=== PATIENT | male | born 1955 | race Caucasian/White ===

== ENCOUNTER 2019-07-02 17:18 | Inpatient (IN) ==
[2019-07-02] MEDS ORDERED: Nitroglycerin 0.4 MG TAB.SUBL SL ONE (19:50)
[2019-07-02] MEDS ORDERED: Furosemide 40 MG/4 ML VIAL IVP STA (20:18)
[2019-07-02] MEDS ORDERED: Amiodarone Premix 150 MG/100 ML BAG IVPB ONE (21:00)
[2019-07-02 21:01] LABS: Hematocrit 39.1 % (37.5-50.1); Mean Corpuscular HGB Conc 33.2 g/dL (31.6-35.5); Mean Corpuscular Hemoglobin 26.9 pg (28.0-33.3); Mean Corpuscular Volume 80.8 fL (83.0-100.0); Mean Platelet Volume 10.6 fL (9.4-12.4); Platelet Count 310 K/mcL (140-400); Red Blood Count 4.84 M/mcL (4.19-5.50); Red Cell Distribution Width 15.1 % (11.5-14.5); White Blood Count 14.4 K/mcL (4.3-11.1)
[2019-07-02 21:05] LABS: INR 1.3; Prothrombin Time 15.2 Seconds (9.4-12.1)
[2019-07-02] MEDS ORDERED: Amiodarone Premix 360 MG/200 ML BAG IVC ONE (21:08)
[2019-07-02 21:22] LABS: BUN/Creatinine Ratio 20 (6-26); Blood Urea Nitrogen 19 mg/dL (8-23); Calcium 9.1 mg/dL (8.6-10.3); Carbon Dioxide 21 mEq/L (23-29); Chloride 103 mEq/L (98-107); Glucose 149 mg/dL (70-105); Osmolality,Calculated 287 (280-300); Potassium 4.2 mEq/L (3.5-5.1); Sodium 136 mEq/L (136-145); eGFR For African Americans > 60 (> 60); eGFR For Non-African Americans > 60 (> 60)
[2019-07-02] MEDS ORDERED: Acetaminophen 325 MG TABLET PO PRN (21:26)
[2019-07-02] MEDS ORDERED: Naloxone 0.4 MG/ML INJ IVP PRN (21:26)
[2019-07-02] MEDS ORDERED: D5% in Water 1,000 ML IVC PRN (21:30)
[2019-07-02] MEDS ORDERED: Dextrose Gel 15 GM/37.5 ML TUBE PO PRN ×2 (21:30)
[2019-07-02] MEDS ORDERED: *HR* Dextrose 50 % in Water (Syg) 50 ML SYRINGE IVP PRN (21:30)
[2019-07-02 21:37] LABS: Thyroid Stimulating Hormone 3.399 mcIU/mL (0.340-5.600)
[2019-07-02] MEDS ORDERED: *HR* Heparin 5,000 UNIT/ML VIAL IVP PRN (21:38)
[2019-07-02] MEDS ORDERED: *HR* Heparin 5,000 UNIT/ML VIAL IVP ONE (21:38)
[2019-07-02 21:39] LABS: Triiodothyronine (T3) Free 2.66 pg/mL (2.50-3.90)
[2019-07-02] MEDS ORDERED: Heparin 25,000 UNIT/250 ML D5W 25,000 UNIT/250 ML IV.SOLN IVC SCH (21:45)
[2019-07-02] MEDS: Heparin 25,000 UNIT/250 ML D5W 25,000 UNIT/250 ML IV.SOLN IVC SCH (22:22)
[2019-07-02] MEDS ORDERED: *HR* Metoprolol 5 MG/5 ML VIAL IVP PRN (22:47)
[2019-07-03] MEDS ORDERED: Ondansetron 4 MG/2 ML VIAL IVP ONE (00:51)
[2019-07-03] MEDS ORDERED: Ondansetron 4 MG/2 ML VIAL ONE (00:54)
[2019-07-03 01:06] LABS: Hematocrit 40.6 % (37.5-50.1); Hemoglobin 12.9 g/dL (12.9-16.9); Mean Corpuscular HGB Conc 31.8 g/dL (31.6-35.5); Mean Corpuscular Hemoglobin 26.6 pg (28.0-33.3); Mean Corpuscular Volume 83.7 fL (83.0-100.0); Mean Platelet Volume 10.7 fL (9.4-12.4); Platelet Count 331 K/mcL (140-400); Red Blood Count 4.85 M/mcL (4.19-5.50); Red Cell Distribution Width 15.2 % (11.5-14.5); White Blood Count 15.6 K/mcL (4.3-11.1)
[2019-07-03 01:23] LABS: BUN/Creatinine Ratio 18 (6-26); Blood Urea Nitrogen 19 mg/dL (8-23); Calcium 9.1 mg/dL (8.6-10.3); Carbon Dioxide 22 mEq/L (23-29); Chloride 102 mEq/L (98-107); Glucose 207 mg/dL (70-105); Magnesium 1.7 mg/dL (1.6-2.6); Osmolality,Calculated 284 (280-300); Sodium 133 mEq/L (136-145); eGFR For African Americans > 60 (> 60); eGFR For Non-African Americans > 60 (> 60)
[2019-07-03] MEDS ORDERED: Naloxone 0.4 MG/ML INJ IVP PRN (01:44)
[2019-07-03] MEDS ORDERED: Ondansetron 4 MG/2 ML VIAL IVP PRN (01:44)
[2019-07-03] MEDS: Insulin LISPRO 300 UNITS/3 ML VIAL SQ SCH ×5 (02:31→21:37)
[2019-07-03] MEDS: Amiodarone Premix 360 MG/200 ML BAG IVC SCH ×2 (03:40→16:01)
[2019-07-03 05:43] LABS: Alanine Aminotransferase 25 Units/L (7-52); Albumin 3.6 g/dL (3.5-5.7); Albumin/Globulin Ratio 1.2 (1.1-2.2); Alkaline Phosphatase 69 Units/L (34-104); Aspartate Amino Transferase 19 Units/L (13-39); BUN/Creatinine Ratio 20 (6-26); Bilirubin,Total 0.9 mg/dL (0.3-1.0); Blood Urea Nitrogen 21 mg/dL (8-23); Carbon Dioxide 23 mEq/L (23-29); Chloride 102 mEq/L (98-107); Chol/HDL Ratio 5.2 (0-4.9); Cholesterol 166 mg/dL (< 200); Glucose 240 mg/dL (70-105); HDL Cholesterol 32 mg/dL (40-59); LDL Cholesterol,Calculated 89 mg/dL (0-99); Magnesium 1.7 mg/dL (1.6-2.6); Osmolality,Calculated 287 (280-300); Phosphorous 4.4 mg/dL (2.7-4.5); Sodium 133 mEq/L (136-145); Total Protein 6.6 g/dL (6.4-8.9); Triglycerides 225 mg/dL (< 150); eGFR For African Americans > 60 (> 60); eGFR For Non-African Americans > 60 (> 60)
[2019-07-03] MEDS: *HR* Heparin 5,000 UNIT/ML VIAL IVP PRN ×3 (05:51→21:28)
[2019-07-03] MEDS: Doxycycline 100 MG CAPSULE PO SCH ×2 (08:13→21:28)
[2019-07-03] MEDS: Aspirin Enteric Coated 81 MG Tablet PO SCH (08:13)
[2019-07-03] MEDS ORDERED: Furosemide 40 MG/4 ML VIAL IVP ONE (08:51)
[2019-07-03 11:20] LABS: Bilirubin,Urine Negative (Negative); Blood,Urine Trace (Negative); Color,Urine Yellow (Yellow); Glucose,Urine (UA) 100 mg/dL (Normal); Ketones,Urine Negative (Negative); Leukocyte Esterase,Urine Negative (Negative); Nitrite,Urine Negative (Negative); Protein,Urine Negative (Neg-Trace); Specific Gravity,Urine 1.019 (1.010-1.025); Urobilinogen,Urine Normal (Normal)
[2019-07-03 11:22] LABS: Bacteria,Urine None Seen per hpf (None-Few); Clarity,Urine Clear (Clear); Hyaline Casts,Urine None Seen per lpf (None-Few); Squamous Epithelial Cell,Urine Moderate per lpf (None-Few); WBC,Urine 0-3 per hpf (0-3)
[2019-07-03] MEDS: Heparin 25,000 UNIT/250 ML D5W 25,000 UNIT/250 ML IV.SOLN IVC SCH (15:29)
[2019-07-04] MEDS: Amiodarone Premix 360 MG/200 ML BAG IVC SCH ×2 (03:08→16:03)
[2019-07-04] MEDS: Heparin 25,000 UNIT/250 ML D5W 25,000 UNIT/250 ML IV.SOLN IVC SCH (04:28)
[2019-07-04 04:32] LABS: Basophils # 0.1 K/mcL (0.0-0.2); Basophils % 0.5 %; Eosinophils # 0.2 K/mcL (0.0-0.6); Eosinophils % 1.6 %; Hematocrit 37.2 % (37.5-50.1); Hemoglobin 11.5 g/dL (12.9-16.9); Immature Granulocytes % 0.6 % (0-4); Lymphocytes # 2.3 K/mcL (0.6-4.6); Lymphocytes % 20.2 %; Mean Corpuscular HGB Conc 30.9 g/dL (31.6-35.5); Mean Corpuscular Hemoglobin 26.5 pg (28.0-33.3); Mean Corpuscular Volume 85.7 fL (83.0-100.0); Mean Platelet Volume 10.6 fL (9.4-12.4); Monocytes # 1.5 K/mcL (0.0-1.3); Monocytes % 13.4 %; Neutrophils # 7.1 K/mcL (1.6-8.9); Platelet Count 246 K/mcL (140-400); Red Blood Count 4.34 M/mcL (4.19-5.50); Red Cell Distribution Width 15.6 % (11.5-14.5); Segmented Neutrophils % 63.7 %; White Blood Count 11.1 K/mcL (4.3-11.1)
[2019-07-04 04:55] LABS: BUN/Creatinine Ratio 21 (6-26); Blood Urea Nitrogen 24 mg/dL (8-23); Calcium 8.6 mg/dL (8.6-10.3); Carbon Dioxide 25 mEq/L (23-29); Chloride 96 mEq/L (98-107); Glucose 361 mg/dL (70-105); Osmolality,Calculated 293 (280-300); Potassium 4.1 mEq/L (3.5-5.1); Sodium 132 mEq/L (136-145); eGFR For African Americans > 60 (> 60); eGFR For Non-African Americans > 60 (> 60)
[2019-07-04] MEDS: *HR* Heparin 5,000 UNIT/ML VIAL IVP PRN (05:52)
[2019-07-04] MEDS: Aspirin Enteric Coated 81 MG Tablet PO SCH (07:50)
[2019-07-04] MEDS: Doxycycline 100 MG CAPSULE PO SCH ×2 (07:50→19:58)
[2019-07-04] MEDS: Insulin LISPRO 300 UNITS/3 ML VIAL SQ SCH ×4 (08:00→21:38)
[2019-07-04] MEDS ORDERED: Furosemide 40 MG/4 ML VIAL IVP SCH (09:00)
[2019-07-04] MEDS: Furosemide 40 MG/4 ML VIAL IVP SCH ×2 (09:47→19:58)
[2019-07-04] MEDS: carvediloL 6.25 MG TABLET PO SCH ×2 (09:51→15:59)
[2019-07-04] MEDS ORDERED: Insulin LISPRO 300 UNITS/3 ML VIAL SQ SCH ×3 (13:30→17:00)
[2019-07-04] MEDS: Apixaban 5 MG TABLET PO SCH ×2 (13:48→19:58)
[2019-07-04] MEDS ORDERED: Insulin LISPRO 300 UNITS/3 ML VIAL SQ ONE (15:44)
[2019-07-04] MEDS ORDERED: Insulin DETEMIR 100 UNIT/ML X5UNITS SQ SCH ×3 (21:00)
[2019-07-05 04:47] LABS: Hematocrit 35.6 % (37.5-50.1); Hemoglobin 11.6 g/dL (12.9-16.9); Mean Corpuscular HGB Conc 32.6 g/dL (31.6-35.5); Mean Corpuscular Hemoglobin 26.7 pg (28.0-33.3); Mean Corpuscular Volume 81.8 fL (83.0-100.0); Mean Platelet Volume 10.6 fL (9.4-12.4); Platelet Count 283 K/mcL (140-400); Red Blood Count 4.35 M/mcL (4.19-5.50); Red Cell Distribution Width 15.5 % (11.5-14.5); White Blood Count 10.1 K/mcL (4.3-11.1)
[2019-07-05 05:05] LABS: Magnesium 1.9 mg/dL (1.6-2.6)
[2019-07-05 05:06] LABS: BUN/Creatinine Ratio 25 (6-26); Blood Urea Nitrogen 26 mg/dL (8-23); Calcium 8.8 mg/dL (8.6-10.3); Carbon Dioxide 29 mEq/L (23-29); Chloride 95 mEq/L (98-107); Glucose 308 mg/dL (70-105); Osmolality,Calculated 294 (280-300); Potassium 3.8 mEq/L (3.5-5.1); Sodium 134 mEq/L (136-145); eGFR For African Americans > 60 (> 60); eGFR For Non-African Americans > 60 (> 60)
[2019-07-05] MEDS: Spironolactone 25 MG TABLET PO SCH (08:29)
[2019-07-05] MEDS: Aspirin Enteric Coated 81 MG Tablet PO SCH (08:29)
[2019-07-05] MEDS: Furosemide 40 MG/4 ML VIAL IVP SCH ×2 (08:29→20:04)
[2019-07-05] MEDS: Insulin LISPRO 300 UNITS/3 ML VIAL SQ SCH ×7 (08:30→21:58)
[2019-07-05] MEDS: Insulin DETEMIR 100 UNIT/ML X5UNITS SQ SCH ×2 (08:30→20:04)
[2019-07-05] MEDS: Apixaban 5 MG TABLET PO SCH ×2 (08:30→20:03)
[2019-07-05] MEDS: Doxycycline 100 MG CAPSULE PO SCH ×2 (08:30→20:04)
[2019-07-05] MEDS ORDERED: carvediloL 6.25 MG TABLET PO ONE (09:30)
[2019-07-05] MEDS ORDERED: Furosemide 40 MG TABLET PO SCH (17:00)
[2019-07-05] MEDS: carvediloL 6.25 MG TABLET PO SCH (17:01)
[2019-07-06 04:51] LABS: Basophils % 0.4 %; Eosinophils # 0.5 K/mcL (0.0-0.6); Eosinophils % 4.9 %; Hematocrit 34.9 % (37.5-50.1); Hemoglobin 11.1 g/dL (12.9-16.9); Immature Granulocytes % 0.4 % (0-4); Lymphocytes # 1.9 K/mcL (0.6-4.6); Lymphocytes % 20.9 %; Mean Corpuscular HGB Conc 31.8 g/dL (31.6-35.5); Mean Corpuscular Hemoglobin 26.2 pg (28.0-33.3); Mean Corpuscular Volume 82.5 fL (83.0-100.0); Mean Platelet Volume 10.1 fL (9.4-12.4); Monocytes # 1.1 K/mcL (0.0-1.3); Monocytes % 11.6 %; Neutrophils # 5.7 K/mcL (1.6-8.9); Platelet Count 258 K/mcL (140-400); Red Blood Count 4.23 M/mcL (4.19-5.50); Red Cell Distribution Width 15.3 % (11.5-14.5); Segmented Neutrophils % 61.8 %; White Blood Count 9.2 K/mcL (4.3-11.1)
[2019-07-06 05:16] LABS: BUN/Creatinine Ratio 26 (6-26); Blood Urea Nitrogen 26 mg/dL (8-23); Calcium 8.7 mg/dL (8.6-10.3); Carbon Dioxide 29 mEq/L (23-29); Chloride 96 mEq/L (98-107); Glucose 274 mg/dL (70-105); Osmolality,Calculated 293 (280-300); Potassium 3.7 mEq/L (3.5-5.1); Sodium 134 mEq/L (136-145); eGFR For African Americans > 60 (> 60); eGFR For Non-African Americans > 60 (> 60)
[2019-07-06 05:17] LABS: Magnesium 1.6 mg/dL (1.6-2.6); Phosphorous 3.8 mg/dL (2.7-4.5)
[2019-07-06 07:59] VITALS: BP 148/79
[2019-07-06] MEDS: carvediloL 6.25 MG TABLET PO SCH (08:38)
[2019-07-06] MEDS: Furosemide 40 MG/4 ML VIAL IVP SCH (08:38)
[2019-07-06] MEDS: Doxycycline 100 MG CAPSULE PO SCH (08:38)
[2019-07-06] MEDS: Aspirin Enteric Coated 81 MG Tablet PO SCH (08:38)
[2019-07-06] MEDS: Spironolactone 25 MG TABLET PO SCH (08:39)
[2019-07-06] MEDS: Apixaban 5 MG TABLET PO SCH (08:39)
[2019-07-06] MEDS: Insulin LISPRO 300 UNITS/3 ML VIAL SQ SCH ×4 (08:39→12:03)
[2019-07-06] MEDS: Insulin DETEMIR 100 UNIT/ML X5UNITS SQ SCH (09:22)
== END 2019-07-06 14:30 | disposition home or self-care (01) | DRG 280 ==
LOC: 2NENU → SUATTDRO 18:55 → 2NNU 20:52 → SUATTDRO 07-03 11:24 → 2NENU 07-06 06:18
PROVIDERS: ADMIT Pharmacist; ATTEND Internal Medicine